=== PATIENT | male | born 1975 | race Caucasian/White ===

== ENCOUNTER 2023-08-15 10:10 | Outpatient (CLI) | payer BC ==
[~2023-08-15 10:10] MED LIST: Magnevist 469MG/ML 20 ML VIAL ONE
== END 2023-08-15 10:11 | disposition home or self-care (01) ==
LOC: CSHMRI 10:10
PROVIDERS: ATTEND Radiology Radiation Oncology
DX: C71.9 Malignant neoplasm of brain, unspecified (principal); C71.0 Malignant neoplasm of cerebrum, except lobes and ventricles; G93.6 Cerebral edema
CPT/HCPCS: 70553